=== PATIENT | male | born 1960 | race Caucasian/White ===

== ENCOUNTER 2016-07-07 08:56 | Emergency (ER) | payer OTHER ==
[~2016-07-07] VITALS: Ht 167.6 cm; Wt 73.0 kg
[~2016-07-07 08:56] MED LIST: PHEN-905 PO
[2016-07-07 09:10] VITALS: Ht 167.6 cm; Wt 73.0 kg
[2016-07-07] MEDS ORDERED: ACETAMINOPHEN 500 MG TAB PO STA (09:35)
--- NOTE | 2016-07-07 10:23 | DIAGNOSTIC IMAGING REPORT ---
CHEST 2 VIEWS ROUTINE CLINICAL HISTORY: fever, cough dyspnea COMPARISON STUDY: 06/10/2013 FINDINGS: The bones soft tissues and hemidiaphragms are normal. The cardiomediastinal silhouette is normal. The lungs are clear. The pulmonary vasculature is normal. IMPRESSION: Negative chest. Electronically signed by: David Red M.D. 07/07/2016 10:21 AM Dictated Date/Time: 07/07/2016 10:21 AM
[2016-07-07 10:46] LABS: BASO % 0.3 %; BASO ABS # 0.01 K/uL (0-0.2); COMPLETE YES; EOS % 1.3 %; HEMATOCRIT 47.5 % (42-52); IG% 0.3 %; LYMPH % 27.2 %; LYMPH ABS # 0.85 K/uL (1.2-3.4); MEAN CELL VOLUME 88.3 fL (80-100); MEAN CORPUSCULAR HEMOGLOBIN 31.2 pg (25-34); MEAN CORPUSCULAR HGB CONC 35.4 g/dl (32-36); MEAN PLATELET VOLUME 9.6 fL (7.4-10.4); MONO % 14.7 %; NEUT % 56.2 %; PLATELET COUNT 183 K/uL (130-400); RED BLOOD COUNT 5.38 M/uL (4.7-6.1); WHITE BLOOD COUNT 3.12 K/uL (4.8-10.8)
[2016-07-07 10:50] LABS: BUN/CREATININE RATIO 9.8 (10-20); CALCIUM 8.7 mg/dl (8.5-10.1); CREATININE 1.2 mg/dl (0.60-1.40); POTASSIUM 4.1 mmol/L (3.5-5.1)
[2016-07-07 11:07] LABS: URINE APPEARANCE TURBID (CLEAR); URINE COLOR DK YELLOW; URINE NITRITE NEG (NEG); URINE SPECIFIC GRAVITY 1.034 (1.000-1.030); UROBILINOGEN NEG (NEG); ZZUR CULT IF INDIC CLEAN CATCH NO
[2016-07-07 11:17] LABS: MANUAL MICROSCOPIC REQUIRED? NO; REVIEW REQ? NO; URINE BILIRUBIN NEG (NEG)
[2016-07-07] MEDS ORDERED: SODIUM CHLORIDE 0.9% 1000ML 1,000 ML IV STA (11:20)
[2016-07-07] MEDS ORDERED: OSEL75CA12 PO (11:34)
--- NOTE | 2016-07-07 11:35 | EMERGENCY ROOM VISIT NOTE ---
History First contact with patient: 09:29 Chief Complaint: FLU LIKE SX Stated Complaint: FLU SYMPTOMS, WEAKNESS, DEHYDRATION History of Present Illness The patient is a 56 year old male who presents to the Emergency Room with complaints of flulike symptoms. The patient states that Monday he started feeling achy all over. Over the last 2 days he felt fever and chills but has not taken it anything [id number]. The patient denies any nausea vomiting or diarrhea. The patient denies any urinary symptoms of frequency, urgency, dysuria or hematuria. The patient does admit to some nasal congestion but denies any cough, ear pain or sore throat. Review of Systems 10 system review was performed and was negative unless stated otherwise history of present illness. Past Medical/Surgical History Medical Problems: (1) Bronchitis (2) Lumbago (3) Nuclear cataract (4) Pneumonia Family History Patient reports no known family medical history. Social History Smoking Status: Former Smoker Alcohol Use: occasionally Drug Use: none Marital Status: Housing Status: lives with family Occupation Status: employed Allergies Coded Allergies: No Known Allergies (Unverified , 07/07/16) Physical Exam Vital Signs Date Time Temp Pulse Resp B/P Pulse Ox O2 Delivery O2 Flow Rate FiO2 07/07/16 09:10 37.7 107 20 129/90 95 Room Air Physical Exam PHYSICAL EXAM: Vital Signs normal: Temperature 37.7, blood pressure 120/90, pulse 107, respiratory rate 20 Reviewed Nurse's notes and agree. GENERAL: Patient is alert and oriented no acute distress. MENTAL Status: Alert and oriented 3. EARS: Canals clear. TMs good light reflex, no erythema or fluid level noted. NOSE: Nasal mucosa with erythema and engorgement. SINUSES: Nontender to percussion throughout. PHARYNX: No erythema or edema noted. Airway is adequate. LUNGS: Clear to auscultation without wheezes rales or rhonchi. CARDIAC: Regular rate and rhythm without murmur. BACK: No CVA tenderness noted. The abdomen is soft, mildly tender in the suprapubic area, but no masses or organs are felt. SKIN: No rashes noted Medical Decision & Procedures ER Provider Diagnostic Interpretation: CHEST 2 VIEWS ROUTINE CLINICAL HISTORY: fever, cough dyspnea COMPARISON STUDY: 06/10/2013 FINDINGS: The bones soft tissues and hemidiaphragms are normal. The cardiomediastinal silhouette is normal. The lungs are clear. The pulmonary vasculature is normal. IMPRESSION: Negative chest. Laboratory Results 07/07/16 09:57 Red Blood Count 5.38, Mean Corpuscular Volume 88.3, Mean Corpuscular Hemoglobin 31.2, Mean Corpuscular Hemoglobin Concent 35.4, Mean Platelet Volume 9.6, Neutrophils (%) (Auto) 56.2, Lymphocytes (%) (Auto) 27.2, Monocytes (%) (Auto) 14.7, Eosinophils (%) (Auto) 1.3, Basophils (%) (Auto) 0.3, Neutrophils # (Auto ) 1.75, Lymphocytes # (Auto) 0.85, Monocytes # (Auto) 0.46, Eosinophils # (Auto ) 0.04, Basophils # (Auto) 0.01 07/07/16 09:57 Test 07/07/16 09:30 07/07/16 09:57 07/07/16 10:48 Influenza Type A Antigen Neg for Influ A (NEG) Influenza Type B Antigen POS for Influ B (NEG) White Blood Count 3.12 K/uL (4.8-10.8) Red Blood Count 5.38 M/uL (4.7-6.1) Hemoglobin 16.8 g/dL (14.0-18.0) Hematocrit 47.5 % (42-52) Mean Corpuscular Volume 88.3 fL (80-100) Mean Corpuscular Hemoglobin 31.2 pg (25-34) Mean Corpuscular Hemoglobin Concent 35.4 g/dl (32-36) Platelet Count 183 K/uL (130-400) Mean Platelet Volume 9.6 fL (7.4-10.4) Neutrophils (%) (Auto) 56.2 % Lymphocytes (%) (Auto) 27.2 % Monocytes (%) (Auto) 14.7 % Eosinophils (%) (Auto) 1.3 % Basophils (%) (Auto) 0.3 % Neutrophils # (Auto) 1.75 K/uL (1.4-6.5) Lymphocytes # (Auto) 0.85 K/uL (1.2-3.4) Monocytes # (Auto) 0.46 K/uL (0.11-0.59) Eosinophils # (Auto) 0.04 K/uL (0-0.5) Basophils # (Auto) 0.01 K/uL (0-0.2) RDW Standard Deviation 41.8 fL (36.4-46.3) RDW Coefficient of Variation 13.0 % (11.5-14.5) Immature Granulocyte % (Auto) 0.3 % Immature Granulocyte # (Auto) 0.01 K/uL (0.00-0.02) Anion Gap 10.0 mmol/L (3-11) Est Creatinine Clear Calc Drug Dose 63.5 ml/min Estimated GFR () 79.0 Estimated GFR (Non- 68.1 BUN/Creatinine Ratio 9.8 (10-20) Calcium Level 8.7 mg/dl (8.5-10.1) Urine Color DK YELLOW Urine Appearance TURBID (CLEAR) Urine pH 5.0 (4.5-7.5) Urine Specific [place] 1.034 (1.000-1.030) Urine Protein TRACE (NEG) Urine Glucose (UA) TRACE (NEG) Urine Ketones TRACE (NEG) Urine Occult Blood NEG (NEG) Urine Nitrite NEG (NEG) Urine Bilirubin NEG (NEG) Urine Urobilinogen NEG (NEG) Urine Leukocyte Esterase NEG (NEG) Urine WBC (Auto) 1-5 /hpf (0-5) Urine RBC (Auto) 0-4 /hpf (0-4) Urine Hyaline Casts (Auto) 10-30 /lpf (0-5) Urine Epithelial Cells (Auto) 10-20 /lpf (0-5) Urine Bacteria (Auto) NEG (NEG) Medications Administered Medications (Trade) Dose Ordered Sig/Lacie Route Start Time Stop Time Status Last Admin Dose Admin Acetaminophen (Tylenol Tab) 1,000 mg NOW STAT PO 07/07/16 09:35 07/07/16 09:37 DC 07/07/16 10:02 1,000 MG ED Course The patient was evaluated. The patient was given Tylenol 1 g by mouth for fever. IV access was obtained. CBC and differential, renal profile was ordered. Labs are reviewed. White count was slightly low. Urinalysis was ordered. Urinalysis did not reveal any evidence of infection but his ketones were high therefore the patient was given 1 L normal saline wide-open. Chest x- ray was ordered and interpreted by the radiologist as above without any acute findings. Influenza was negative for influenza A but positive for influenza B. The patient was informed of the findings. The patient was discharged home in stable condition. Medical Decision Differential diagnosis include influenza, viral URI, bronchitis, pneumonia Impression Primary Impression: Influenza B Departure Information Dispostion Home / Self-Care Condition GOOD Prescriptions Oseltamivir (Tamiflu) 75 Mg Cap 75 MG PO BID for 5 Days, #10 CAP Prov: Edita Red PA-C 07/07/16 Referrals Lpóez Romero M.D. (PCP) Forms HOME CARE DOCUMENTATION FORM, IMPORTANT VISIT INFORMATION Patient Instructions My [facility] Additional Instructions Push fluids. Tylenol and/or ibuprofen as needed for fever and body aches. Take Tamiflu as directed. Avoid public places until symptoms have resolved. If symptoms persist or worsen, follow-up with your family doctor or return to ER.
[2016-07-07 12:34] VITALS: BP 116/81; PULSE 73; TEMP 37; O2SAT 98
== END 2016-07-07 12:36 | disposition home or self-care (01) ==
LOC: C.EDB 08:58
DX: J11.1 Influenza due to unidentified influenza virus with other respiratory manifestations (principal)

== ENCOUNTER 2023-04-29 09:18 | Inpatient (IN) ==
--- NOTE | 2023-04-29 09:46 | Emergency Department Note ---
Impression & Plan Abscess of sigmoid colon due to diverticulitis, Abdominal pain ED Provider Note NAME: SHERRY BARAKAT AGE: 62 SEX: M : 1960 ARRIVES VIA: Walk-In INFORMANT: Patient ED PROVIDER(S): Smith Gongora DO CHIEF COMPLAINT: abdominal pain HPI: Patient is a 62-year-old male who presents to the ER for lower abdominal pain. This started about 2 to 3 days ago. It waxes and wanes in intensity. And jumps from right side to left side intermittently. He denies any headache or change in vision. No chest pain or shortness of breath. No dysuria, urgency, or frequency. Normal bowel movements. No other exacerbating or remitting factors. No previous abdominal surgeries. ADDITIONAL HISTORY OBTAINED: Per HPI Chronic Medical/Social Conditions Affecting Care: Per HPI PAST MEDICAL HISTORY:See Below PAST SURGICAL HISTORY:See Below FAMILY HISTORY:See Below SOCIAL HISTORY:See Below HOME MEDICATIONS:See Below ALLERGIES:See Below VITALS:See Below PHYSICAL EXAMINATION: GENERAL: Sitting up in bed, alert, well appearing, well nourished, no distress, non-toxic EYE EXAM: normal conjunctiva. OROPHARYNX:mucous membranes are moist NECK: supple, no nuchal rigidity, no adenopathy, non-tender LUNGS: Clear to auscultation. Normal chest wall mechanics HEART: no murmurs, S1 normal and S2 normal ABDOMEN: abdomen soft, TTP lower abd B/L, normo-active bowel sounds, no masses, no rebound or guarding. UPPER EXTREMITIES: upper extremities are grossly normal. LOWER EXTREMITIES: No pitting edema. NEURO EXAM: Normal sensorium, cranial nerves II-XII grossly intact, normal speech, no gross weakness of arms, no gross weakness of legs. MEDICAL DECISION MAKING: Patient is a 62-year-old male who presents ER for severe abdominal pain. IV was established blood work was obtained. Labs show leukocytosis of 14,000. No significant anemia. BMP along with LFTs was unremarkable. T. bili of 2.2. Lipase was normal. UA with only 1-5 whites. Patient was given IV Zosyn as well as IV narcotics fluids and Zofran. Updated bedside. Discussed with general surgery and the hospitalist for further evaluation management and treatment. Consults/Care Managements Discussions: Per [facility] Triage Nursing notes reviewed. Limited review of prior medical records performed Vital Signs: reviewed and remarkable for no significant abnormalities Differential diagnosis: Differential diagnoses includes but is not limited to gastritis, peptic ulcer disease, GERD, gallbladder disease, pancreatitis, small bowel obstruction, appendicitis, diverticulitis, hernia, urinary tract infection, torsion, perforation, trauma, infectious. ER treatment provided: See below Diagnostics interpreted by me include EKG and cardiac monitoring as listed below: -Cardiac Monitoring: An order was placed for continuous cardiac monitoring. The monitor shows a rate of 101 with sinus rhythm. -ECG: none -Laboratory studies:Interpreted by me as stated above in MDM and shown below. Imaging studies: Xrays: As interpreted by me:none CTs show: CT abdomen pelvis per my preliminary read showed inflammation in the lower abdomen CT abdomen pelvis per radiology showed sigmoid diverticulitis with an abscess Procedures:none Critical Care: None Past Med/Surg History Medical History No pertinent past medical history Surgical History No pertinent past surgical history Social History Smoking Status: Never smoker Preferred Language: Afghan Feels Safe at Home: Yes Allergies Allergies Allergy/AdvReac Type Severity Reaction Status Date / Time No Known Allergies Allergy Unverified 04/29/23 12:39 Home Meds Home Medications Medication Instructions Recorded Confirmed ibuprofen 200 mg tablet (Advil) 200 mg PO Q6H PRN Pain 04/29/23 04/29/23 Results & Data (ED) Vital Signs Vital Signs - 24 hr 04/29/23 09:45 04/29/23 11:31 04/29/23 11:31 Temperature 36.2 C L Temperature Source Temporal Artery Scan Pulse Rate 141 H 105 H Pulse Rate [Apical] 105 H Pulse Rhythm Regular Regular Pulse Rhythm [Apical] Regular Pulse Strength Normal Pulse Strength [Apical] Normal Respiratory Rate 20 20 20 Respiratory Effort / Characteristics Non-Labored Spontaneous Non-Labored Spontaneous Respiratory Depth Normal Normal Respiratory Pattern Regular Regular Blood Pressure 122/88 Blood Pressure [Left Arm] 152/93 H Blood Pressure Mean 99 Blood Pressure Mean [Left Arm] 112 Blood Pressure Position Sitting Blood Pressure Position [Left Arm] Lying Pulse Oximetry 95 94 94 Oxygen Delivery Method Room Air Room Air Room Air Sepsis Recent Fever Within 48 Hours No Sepsis New/Unexplained Change in Mental Status No Sepsis Action Taken by Nursing No Action Required 04/29/23 11:57 Temperature Temperature Source Pulse Rate 106 H Pulse Rate [Apical] Pulse Rhythm Pulse Rhythm [Apical] Pulse Strength Pulse Strength [Apical] Respiratory Rate Respiratory Effort / Characteristics Respiratory Depth Respiratory Pattern Blood Pressure Blood Pressure [Left Arm] Blood Pressure Mean Blood Pressure Mean [Left Arm] Blood Pressure Position Blood Pressure Position [Left Arm] Pulse Oximetry Oxygen Delivery Method Sepsis Recent Fever Within 48 Hours Sepsis New/Unexplained Change in Mental Status Sepsis Action Taken by Nursing Laboratory Data 04/29/23 11:31 04/29/23 11:31 Lab Results 04/29/23 04/29/23 Range/Units 11:31 11:42 WBC 14.61 H (4.8-10.8) K/ul RBC 5.51 (4.70-6.10) M/uL Hgb 17.0 (14.0-18.0) g/dl POC Hgb 17.3 (14.0-18.0) g/dl Hct 49.2 (42.0-52.0) % POC Hct 51 (42-52) % MCV 89.3 (80.0-100.0) fL MCH 30.9 (25.0-34.0) pg MCHC 34.6 (32.0-36.0) g/dL RDW Std Deviation 41.3 (36.4-46.3) fL RDW Coeff of Adeola 12.6 (11.5-14.5) % Plt Count 316 (130-400) K/uL MPV 9.3 L (9.4-12.4) fL Immature Gran % (Auto) 0.8 % Neut % (Auto) 80.9 % Lymph % (Auto) 9.5 % Nolan % (Auto) 8.3 % Eos % (Auto) 0.2 % Baso % (Auto) 0.3 % Neut # (Auto) 11.82 H (1.40-6.50) K/uL Lymph # (Auto) 1.39 (1.20-3.40) K/uL Nolan # (Auto) 1.21 H (0.11-0.59) K/uL Eos # (Auto) 0.03 (0.00-0.50) K/uL Baso # (Auto) 0.05 (0.00-0.20) K/uL Immature Gran # (Auto) 0.11 (0.01-0.20) K/uL POC Sodium 138 (135-144) mmol/L Sodium 138 (136-145) mmol/L POC Potassium 4.2 (3.3-5.0) mmol/L Potassium 4.2 (3.5-5.1) mmol/L POC Chloride 101 (101-112) mmol/L Chloride 101 (98-107) mmol/L Carbon Dioxide 26 (21-32) mmol/L POC Total CO2 26 (24-31) mmol/L Anion Gap 11 (3-11) POC Anion Gap 16.0 (16-25) mmol/L POC BUN 16 (7-18) mg/dl BUN 16 (6-23) mg/dl Creatinine 1.14 (0.6-1.4) mg/dl POC Creatinine 1.2 (0.6-1.3) mg/dl Est Cr Clr Drug Dosing 67.2 ml/min Est GFR ( Amer) 80.6 ml/min Est GFR (Non-Af Amer) 69.5 ml/min BUN/Creatinine Ratio 14.0 (10-20) Glucose 95 (70-99(Fasting)) mg/dl POC Glucose (other) 98 (70-99) mg/dl Calcium 9.8 (8.6-10.3) mg/dl POC Ioniz Calcium Kathy 1.20 (1.12-1.32) mmol/l Total Bilirubin 2.2 H (0.2-1.0) mg/dl AST 31 (13-39) U/L ALT 37 (7-52) U/L Alkaline Phosphatase 100 (34-104) U/L Total Protein 8.4 H (6.0-8.3) gm/dl Albumin 4.4 (3.4-5.0) gm/dl Globulin 4.0 (2.5-4.0) gm/dl Albumin/Globulin Ratio 1.1 (0.9-2) Lipase 23 (11-82) U/L Urine Color [place] Urine Appearance Clear (Clear) Urine pH 5.5 (4.5-7.5) Ur Specific [place] 1.025 (1.000-1.030) Urine Protein 1+ H (Negative) Urine Glucose (UA) Negative (Negative) Urine Ketones 2+ H (Negative) Urine Blood Negative (Negative) Urine Nitrite Positive A (Negative) Urine Bilirubin 2+ H (Negative) Urine Urobilinogen Negative (Negative) Ur Leukocyte Esterase Trace H (Negative) Urine WBC (Auto) 1-5 (0-5) /hpf Urine RBC (Auto) 0-4 (0-4) /hpf U Hyaline Cast (Auto) 10-30 H (0-5) /lpf U Epithel Cells (Auto) 10-20 H (0-5) /lpf Urine Bacteria (Auto) Negative (Negative) Administered Medications Potassium Chloride/Sodium Chloride (Normal Saline W/20 Meq Kcl) 20 meq in 1,000 mls @ 100 mls/hr IV .Q10H ALEYDA; Protocol Stop: 05/29/23 12:59 Last Admin: 04/29/23 13:21 Dose: 100 mls/hr Documented By: JUAN RAMON Discontinued Medications Sodium Chloride (Nss) 1,000 mls @ 999 mls/hr IV .Q1H1M ALEYDA Stop: 04/29/23 13:45 Last Infusion: 04/29/23 13:47 Dose: Infused Documented By: JUAN RAMON Admin: 04/29/23 12:46 Dose: 999 mls/hr Documented By: Infusion: 04/29/23 12:46 Dose: Infused Documented By: Admin: 04/29/23 12:04 Dose: 999 mls/hr Documented By: NAT Piperacillin Sod/Tazobactam (Sod 4.5 gm/ Dextrose) 100 mls @ 200 mls/hr IV NOW ONE; Protocol Stop: 04/29/23 12:51 Last Admin: 04/29/23 12:46 Dose: Not Given Documented By: NAT Pantoprazole Sodium 40 mg/ (Syringe) 10 mls @ 5 mls/min IV ONE ONE Stop: 04/29/23 13:31 Last Admin: 04/29/23 13:41 Dose: 5 mls/min Documented By: JUAN RAMON Ioversol (Optiray 320 500ml) 91 ml IV ONCE ONE Stop: 04/29/23 11:52 Last Admin: 04/29/23 11:51 Dose: 91 ml Documented By: NHOEMI Morphine Sulfate (Morphine Sulfate 10 Mg/Ml Carp/Vial) 6 mg IV NOW STA Stop: 04/29/23 11:32 Last Admin: 04/29/23 12:05 Dose: 6 mg Documented By: NAT Ondansetron HCl (Ondansetron Inj 2 Mg/Ml 2 Ml Vial) 4 mg IV NOW STA Stop: 04/29/23 11:32 Last Admin: 04/29/23 12:05 Dose: 4 mg Documented By: NAT Piperacillin Sod/Tazobactam Sod (Piperacillin/Tazobactam 4.5 Gm/100ml D5w) Confirm Administered Dose 4.5 gm IV .[employer] ONE Stop: 04/29/23 12:36 Last Admin: 04/29/23 12:46 Dose: 4.5 gm Documented By: NAT Imaging Data Radiologist's Impression: Abdomen/Pelvis CT 04/29/23 09:[address] WITH IV CONTRAST CT DOSE: 1146.02 mGy.cm HISTORY: Acute lower abdominal pain lower abd pain TECHNIQUE: Multiaxial CT images of the abdomen and pelvis were performed following the IV administration of 91 cc of Optiray, A dose lowering technique was utilized adhering to the principles of ALARA. COMPARISON STUDY: Lumbar spine radiographs 05/17/2011 FINDINGS: Moderate coronary artery calcifications. Clear lung bases. No free air. Unremarkable spleen, pancreas, gallbladder and adrenal glands. Hepatic steatosis with 1.4 cm left hepatic lobe cyst. Patency of the hepatic and portal veins. Unremarkable kidneys without hydronephrosis. Decompressed urinary bladder with circumferential wall thickening. Prostatomegaly. Atherosclerosis of the aorta without aneurysm. No lymphadenopathy. Colonic diverticulosis. There is moderate mid sigmoid wall thickening with inflamed diverticula, adjacent inflammatory stranding with trace free pelvic fluid. There is a peripherally enhancing 2.0 x 2.1 cm air and fluid filled structure involving the sigmoid colon image 306 suggestive of an intramural abscess. No drainable fluid collections. Subcentimeter lymph nodes in the sigmoid mesocolon. Nondilated air and fluid-filled loops of small bowel within the lower abdomen and pelvis. The appendix is dilated at 8 mm however appears to be not inflamed. Subcentimeter calcification in the dependent cecum near the base of the appendix. Tiny fat filled umbilical area. Lumbar levoscoliosis. No acute fracture. IMPRESSION: 1. Acute sigmoid diverticulitis with probable intramural abscess measuring 2 cm. No drainable fluid collections or pneumoperitoneum. 2. No bowel obstruction. 3. Mildly dilated appendix without acute inflammatory changes to suggest acute appendicitis. 4. Small fat filled umbilical hernia. 5. Prostatomegaly with evidence of chronic outlet obstruction. ACT 112: Negative or not required by law. The above report was generated using voice recognition software. It may contain grammatical, syntax or spelling errors. Electronically signed by: Jersey Buck M.D. 04/29/2023 12:17 PM Discharge Plan Visit Data Chief Complaint: Abdominal Pain Stated Complaint: LOWER ABDOMINAL PAIN ED Provider: Smith Gongora Discharge Problem: Abscess of sigmoid colon due to diverticulitis, Abdominal pain Discharge Instructions Interventions: ED Discharge Assessment Last Done: 04/29/23 14:11 Discharge Problem: Abdominal pain Qualifiers: Abdominal location: unspecified location Qualified Code(s): R10.9 - Unspecified abdominal pain
[2023-04-29] MEDS ORDERED: ONDANSETRON INJ 2 MG/ML 2 ML VIAL IV STA (11:31)
[2023-04-29] MEDS ORDERED: MoRPHine SULFATE 10 MG/ML CARP/VIAL IV STA (11:31)
[2023-04-29] MEDS ORDERED: OPTIRAY 320 500ml IV ONE (11:51)
[2023-04-29 11:54] LABS: iSTAT Creatinine 1.2 mg/dl (0.6-1.3); iSTAT Hemoglobin 17.3 g/dl (14.0-18.0); iSTAT Ionized Calcium 1.2 mmol/l (1.12-1.32); iSTAT Potassium 4.2 mmol/L (3.3-5.0)
[2023-04-29 12:03] LABS: Basophils # (auto) 0.05 K/uL (0.00-0.20); Basophils % (auto) 0.3 %; Eosinophils # (auto) 0.03 K/uL (0.00-0.50); Eosinophils % (auto) 0.2 %; Hematocrit (blood only) 49.2 % (42.0-52.0); Immature Granulocytes # (auto) 0.11 K/uL (0.01-0.20); Immature Granulocytes % (auto) 0.8 %; Lymphocytes # (auto) 1.39 K/uL (1.20-3.40); Lymphocytes % (auto) 9.5 %; Mean Corpuscular Hemoglobin 30.9 pg (25.0-34.0); Mean Corpuscular Hgb Conc 34.6 g/dL (32.0-36.0); Mean Corpuscular Volume 89.3 fL (80.0-100.0); Mean Platelet Volume 9.3 fL (9.4-12.4); Monocytes # (auto) 1.21 K/uL (0.11-0.59); Monocytes % (auto) 8.3 %; Neutrophils # (auto) 11.82 K/uL (1.40-6.50); Neutrophils % (auto) 80.9 %; Platelet Count 316 K/uL (130-400); RDW Coefficient of Variation 12.6 % (11.5-14.5); RDW Standard Deviation 41.3 fL (36.4-46.3); Red Blood Count 5.51 M/uL (4.70-6.10); White Blood Count 14.61 K/ul (4.8-10.8)
[2023-04-29] MEDS: SODIUM CHLORIDE 0.9% 1,000 ML IV SCH ×2 (12:04→12:46)
[2023-04-29 12:13] LABS: Albumin Globulin Ratio 1.1 (0.9-2); Albumin Level 4.4 gm/dl (3.4-5.0); Bilirubin,Total 2.2 mg/dl (0.2-1.0); Calcium 9.8 mg/dl (8.6-10.3); Creatinine Clr Calc Pharmacy 67.2 ml/min; Est GFR (African American) 80.6 ml/min; Est GFR (Non-African American) 69.5 ml/min; Potassium 4.2 mmol/L (3.5-5.1); Total Protein 8.4 gm/dl (6.0-8.3)
--- NOTE | 2023-04-29 12:19 | CT Scan Report ---
ABDOMEN AND PELVIS CT WITH IV CONTRAST CT DOSE: 1146.02 mGy.cm HISTORY: Acute lower abdominal pain lower abd pain TECHNIQUE: Multiaxial CT images of the abdomen and pelvis were performed following the IV administrat ion of 91 cc of Optiray, A dose lowering technique was utilized adhering to the principles of ALARA. COMPARISON STUDY: Lumbar spine radiographs 05/17/2011 FINDINGS: Moderate coronary artery calcifications. Clear lung bases. No free air. Unremarkable spleen , pancreas, gallbladder and adrenal glands. Hepatic steatosis with 1.4 cm left hepatic lobe cyst. Pat ency of the hepatic and portal veins. Unremarkable kidneys without hydronephrosis. Decompressed urina ry bladder with circumferential wall thickening. Prostatomegaly. Atherosclerosis of the aorta without aneurysm. No lymphadenopathy. Colonic diverticulosis. There is moderate mid sigmoid wall thickening with inflamed diverticula, [place] cent inflammatory stranding with trace free pelvic fluid. There is a peripherally enhancing 2.0 x 2.1 cm air and fluid filled structure involving the sigmoid colon image 306 suggestive of an intramural abscess. No drainable fluid collections. Subcentimeter lymph nodes in the sigmoid mesocolon. Nondilat ed air and fluid-filled loops of small bowel within the lower abdomen and pelvis. The appendix is dil ated at 8 mm however appears to be not inflamed. Subcentimeter calcification in the dependent cecum n ear the base of the appendix. Tiny fat filled umbilical area. Lumbar levoscoliosis. No acute fracture . IMPRESSION: 1. Acute sigmoid diverticulitis with probable intramural abscess measuring 2 cm. No drainable fluid c ollections or pneumoperitoneum. 2. No bowel obstruction. 3. Mildly dilated appendix without acute inflammatory changes to suggest acute appendicitis. 4. Small fat filled umbilical hernia. 5. Prostatomegaly with evidence of chronic outlet obstruction. ACT 112: Negative or not required by law. The above report was generated using voice recognition software. It may contain grammatical, syntax o r spelling errors. Electronically signed by: Jersey Buck M.D. 04/29/2023 12:17 PM
[2023-04-29] MEDS ORDERED: PIPERACILLIN/TAZOBACTAM 4.5 GM in DEXTROSE 5% MINI-B 100 ML IV ONE (12:22)
[2023-04-29 12:30] LABS: Appearance Urine Clear (Clear); Bacteria Urine Automated Negative (Negative); Blood Urine Negative (Negative); Color Urine Orange; Glucose Urine UA Negative (Negative); Ketones Urine 2+ (Negative); Leukocyte Esterase Urine Trace (Negative); Nitrite Urine Positive (Negative); Protein Urine 1+ (Negative); RBC Urine Automated 0-4 /hpf (0-4); Specific Gravity Urine 1.025 (1.000-1.030); Urobilinogen Urine Negative (Negative); pH Urine 5.5 (4.5-7.5)
[2023-04-29] MEDS ORDERED: PIPERACILLIN/TAZOBACTAM 4.5 GM/100ML D5W IV ONE (12:35)
[2023-04-29 12:38] LABS: Bilirubin Urine 2+ (Negative)
--- NOTE | 2023-04-29 13:10 | History & Physical Report ---
Date of Service April 29, 2023 Assessment & Plan (1) Abscess of sigmoid colon due to diverticulitis: Plan Acute sigmoid diverticulitis with intramural abscess 2 cm- N.p.o. except ice chips Zosyn 4.5 g IV every 8 hours NSS + KCl 20 mill equivalents at 100 mL/h Zofran 4 mg IV every 6 hours as needed Pantoprazole 40 mg IV daily Acetaminophen 650 mg by mouth every 6 hours as needed for mild pain or fever Morphine sulfate 2 mg IV every 4 hours as needed for moderate to severe pain General surgery consult BPH with chronic bladder outlet obstruction- As noted on CT, however, patient has no symptomatology Follow urine output, straight cath as needed History of Present Illness Chief Complaint: The patient presents to the emergency department with complaint of 3 to 4 days of gradually worsening left lower quadrant pain, ultimately comes to the emergency department at the insistence of his . Primary Care Provider: NO PCP The patient is a 62-year-old male with no significant past medical history, who presents to the emergency department as noted above. CT scan of abdomen pelvis shows acute sigmoid diverticulitis with intramural abscess 2 cm in size, a mildly dilated appendix without signs of appendicitis, and BPH with chronic bladder outlet obstruction. From the ED the patient received normal saline 1 L bolus, Zosyn 4.5 g IV, morphine sulfate 6 mg IV, and Zofran 4 mg IV. He was assessed by general surgery Dr. Whitehead, and will be admitted to the hospitalist medical service Allergies Allergy/AdvReac Type Severity Reaction Status Date / Time No Known Allergies Allergy Unverified 04/29/23 12:39 Home Medications Medication Instructions Recorded Confirmed Type ibuprofen 200 mg tablet (Advil) 200 mg PO Q6H PRN Pain 04/29/23 04/29/23 History Past Med/Surg History Medical History No pertinent past medical history Surgical History No pertinent past surgical history Social History Smoking Status: Never smoker Preferred Language: Jamaican Feels Safe at Home: Yes Review of Systems Review of Systems: The patient denies chest pain, palpitations, shortness of breath, dyspnea on exertion, cough, lower extremity swelling, sore throat, fevers, chills, sweats, weight change, fatigue, nausea, vomiting, blood in urine or stool, dysuria, urinary frequency or urgency, lightheadedness, dizziness, headache, memory loss, loss of consciousness, rash, abnormal bruising or bleeding, imbalance, focal or generalized weakness, numbness or tingling in arms or legs, generalized arthralgias or myalgias, back or neck pain, or night sweats. The review of systems is otherwise negative other than for that already noted above, and at least 10 systems have been reviewed. Physical Exam Physical Exam: The patient is awake, alert and oriented 3, well developed and well nourished, normocephalic and atraumatic, lying in bed and in no acute distress. HEENT--PERRL, EOMI, mucous membranes and oropharynx dry. Neck--supple. No JVD. No bruits. Thyroid normal, trachea midline, no adenopathy. Heart--normal S1 and S2. No murmurs, rubs or gallops. Lungs--clear bilaterally, no respiratory distress, no accessory muscle use. Abdomen--normal bowel sounds and soft. Left lower quadrant tenderness. Nondistended, no hernias or masses, no organomegaly. Extremities--no cyanosis or clubbing. No edema. There are good distal pulses b/l. Dermatologic--normal skin turgor, normal color, no abnormal lymph nodes, no rash. Neurologic--cranial nerves II through XII grossly intact. Rheumatologic--normal range of motion. Psychiatric--normal affect. Results & Data Results & Data Vital Signs (Past 12 Hours) Vital Signs Temp Pulse Pulse Resp BP BP Pulse Ox 04/29/23 11:57 106 H 04/29/23 11:31 105 H 20 94 04/29/23 11:31 105 H 20 152/93 H 94 04/29/23 09:45 36.2 C L 141 H 20 122/88 95 O2 Del Method 04/29/23 11:57 04/29/23 11:31 Room Air 04/29/23 11:31 Room Air 04/29/23 09:45 Room Air Laboratory Results Laboratory Results WBC 14.61 K/ul (4.8-10.8) H 04/29/23 11:31 RBC 5.51 M/uL (4.70-6.10) 04/29/23 11:31 Hgb 17.0 g/dl (14.0-18.0) 04/29/23 11:31 POC Hgb 17.3 g/dl (14.0-18.0) 04/29/23 11:42 Hct 49.2 % (42.0-52.0) 04/29/23 11:31 POC Hct 51 % (42-52) 04/29/23 11:42 MCV 89.3 fL (80.0-100.0) 04/29/23 11:31 MCH 30.9 pg (25.0-34.0) 04/29/23 11:31 MCHC 34.6 g/dL (32.0-36.0) 04/29/23 11:31 RDW Std Deviation 41.3 fL (36.4-46.3) 04/29/23 11:31 RDW Coeff of Adeola 12.6 % (11.5-14.5) 04/29/23 11:31 Plt Count 316 K/uL (130-400) 04/29/23 11:31 MPV 9.3 fL (9.4-12.4) L 04/29/23 11:31 Immature Gran % (Auto) 0.8 % 04/29/23 11:31 Neut % (Auto) 80.9 % 04/29/23 11:31 Lymph % (Auto) 9.5 % 04/29/23 11:31 [place] % (Auto) 8.3 % 04/29/23 11:31 Eos % (Auto) 0.2 % 04/29/23 11:31 Baso % (Auto) 0.3 % 04/29/23 11:31 Neut # (Auto) 11.82 K/uL (1.40-6.50) H 04/29/23 11:31 Lymph # (Auto) 1.39 K/uL (1.20-3.40) 04/29/23 11:31 [place] # (Auto) 1.21 K/uL (0.11-0.59) H 04/29/23 11:31 Eos # (Auto) 0.03 K/uL (0.00-0.50) 04/29/23 11:31 Baso # (Auto) 0.05 K/uL (0.00-0.20) 04/29/23 11:31 Immature Gran # (Auto) 0.11 K/uL (0.01-0.20) 04/29/23 11:31 POC Sodium 138 mmol/L (135-144) 04/29/23 11:42 Sodium 138 mmol/L (136-145) 04/29/23 11:31 POC Potassium 4.2 mmol/L (3.3-5.0) 04/29/23 11:42 Potassium 4.2 mmol/L (3.5-5.1) 04/29/23 11:31 POC Chloride 101 mmol/L (101-112) 04/29/23 11:42 Chloride 101 mmol/L (98-107) 04/29/23 11:31 Carbon Dioxide 26 mmol/L (21-32) 04/29/23 11:31 POC Total CO2 26 mmol/L (24-31) 04/29/23 11:42 Anion Gap 11 (3-11) 04/29/23 11:31 POC Anion Gap 16.0 mmol/L (16-25) 04/29/23 11:42 POC BUN 16 mg/dl (7-18) 04/29/23 11:42 BUN 16 mg/dl (6-23) 04/29/23 11:31 Creatinine 1.14 mg/dl (0.6-1.4) 04/29/23 11:31 POC Creatinine 1.2 mg/dl (0.6-1.3) 04/29/23 11:42 Est Cr Clr Drug Dosing 67.2 ml/min 04/29/23 11:31 Est GFR ( Amer) 80.6 ml/min 04/29/23 11:31 Est GFR (Non-Af Amer) 69.5 ml/min 04/29/23 11:31 BUN/Creatinine Ratio 14.0 (10-20) 04/29/23 11:31 Glucose 95 mg/dl (70-99(Fasting)) 04/29/23 11:31 POC Glucose (other) 98 mg/dl (70-99) 04/29/23 11:42 Calcium 9.8 mg/dl (8.6-10.3) 04/29/23 11:31 POC Ioniz Calcium Kathy 1.20 mmol/l (1.12-1.32) 04/29/23 11:42 Total Bilirubin 2.2 mg/dl (0.2-1.0) H 04/29/23 11:31 AST 31 U/L (13-39) 04/29/23 11:31 ALT 37 U/L (7-52) 04/29/23 11:31 Alkaline Phosphatase 100 U/L (34-104) 04/29/23 11:31 Total Protein 8.4 gm/dl (6.0-8.3) H 04/29/23 11:31 Albumin 4.4 gm/dl (3.4-5.0) 04/29/23 11:31 Globulin 4.0 gm/dl (2.5-4.0) 04/29/23 11:31 Albumin/Globulin Ratio 1.1 (0.9-2) 04/29/23 11:31 Lipase 23 U/L (11-82) 04/29/23 11:31 Urine Color [place] 04/29/23 11:31 Urine Appearance Clear (Clear) 04/29/23 11:31 Urine pH 5.5 (4.5-7.5) 04/29/23 11:31 Ur Specific [place] 1.025 (1.000-1.030) 04/29/23 11:31 Urine Protein 1+ (Negative) H 04/29/23 11:31 Urine Glucose (UA) Negative (Negative) 04/29/23 11:31 Urine Ketones 2+ (Negative) H 04/29/23 11:31 Urine Blood Negative (Negative) 04/29/23 11:31 Urine Nitrite Positive (Negative) A 04/29/23 11:31 Urine Bilirubin 2+ (Negative) H 04/29/23 11:31 Urine Urobilinogen Negative (Negative) 04/29/23 11:31 Ur Leukocyte Esterase Trace (Negative) H 04/29/23 11:31 Urine WBC (Auto) 1-5 /hpf (0-5) 04/29/23 11:31 Urine RBC (Auto) 0-4 /hpf (0-4) 04/29/23 11:31 U Hyaline Cast (Auto) 10-30 /lpf (0-5) H 04/29/23 11:31 U Epithel Cells (Auto) 10-20 /lpf (0-5) H 04/29/23 11:31 Urine Bacteria (Auto) Negative (Negative) 04/29/23 11:31 Impressions Abdomen/Pelvis CT 04/29/23 09:[address] WITH IV CONTRAST CT DOSE: 1146.02 mGy.cm HISTORY: Acute lower abdominal pain lower abd pain TECHNIQUE: Multiaxial CT images of the abdomen and pelvis were performed following the IV administration of 91 cc of Optiray, A dose lowering technique was utilized adhering to the principles of ALARA. COMPARISON STUDY: Lumbar spine radiographs 05/17/2011 FINDINGS: Moderate coronary artery calcifications. Clear lung bases. No free air. Unremarkable spleen, pancreas, gallbladder and adrenal glands. Hepatic steatosis with 1.4 cm left hepatic lobe cyst. Patency of the hepatic and portal veins. Unremarkable kidneys without hydronephrosis. Decompressed urinary bladder with circumferential wall thickening. Prostatomegaly. Atherosclerosis of the aorta without aneurysm. No lymphadenopathy. Colonic diverticulosis. There is moderate mid sigmoid wall thickening with inflamed diverticula, adjacent inflammatory stranding with trace free pelvic fluid. There is a peripherally enhancing 2.0 x 2.1 cm air and fluid filled structure involving the sigmoid colon image 306 suggestive of an intramural abscess. No drainable fluid collections. Subcentimeter lymph nodes in the sigmoid mesocolon. Nondilated air and fluid-filled loops of small bowel within the lower abdomen and pelvis. The appendix is dilated at 8 mm however appears to be not inflamed. Subcentimeter calcification in the dependent cecum near the base of the appendix. Tiny fat filled umbilical area. Lumbar levoscoliosis. No acute fracture. IMPRESSION: 1. Acute sigmoid diverticulitis with probable intramural abscess measuring 2 cm. No drainable fluid collections or pneumoperitoneum. 2. No bowel obstruction. 3. Mildly dilated appendix without acute inflammatory changes to suggest acute appendicitis. 4. Small fat filled umbilical hernia. 5. Prostatomegaly with evidence of chronic outlet obstruction. ACT 112: Negative or not required by law. The above report was generated using voice recognition software. It may contain grammatical, syntax or spelling errors. Electronically signed by: Jersey Buck M.D. 04/29/2023 12:17 PM Code Status & VTE Plan Code Status Full code VTE Prophylaxis Plan VTE Prophylaxis will be ordered: Yes PG Care Time/CCT Total # of Minutes Spent Total Time Spent with Patient: Total time spent is greater than 50% in coordination of care (as documented) at patient's floor/unit and/or counseling patient: Coding Level of Care Code 89612 INT INP/OBS CARE Diagnoses Abscess of sigmoid colon due to diverticulitis K57.20
[2023-04-29] MEDS: NSS + 20MEQ KCL 20 MEQ/1,000 ML BAG IV SCH (13:21)
[2023-04-29] MEDS ORDERED: PANTOprazole 40 MG in SYRINGE 0 ML IV ONE (13:30)
[2023-04-29] MEDS ORDERED: ONDANSETRON INJ 2 MG/ML 2 ML VIAL IV PRN (14:10)
[2023-04-29] MEDS ORDERED: ACETAMINOPHEN 325 MG TAB PO PRN (14:10)
[2023-04-29] MEDS: MoRPHine SULFATE 2 MG/ML CARP IV PRN (17:29)
[2023-04-29] MEDS: PIPERACILLIN/TAZOBACTAM 4.5 GM in DEXTROSE 5% MINI-B 100 ML IV SCH (17:30)
--- NOTE | 2023-04-29 19:56 | Surgery Consultation ---
Date of Consultation April 29, 2023 Assessment & Plan (1) Abscess of sigmoid colon due to diverticulitis: The patient has been admitted on the hospitalist service. From a surgical perspective we recommend proceeding as follows: Provide analgesics Provide antiemetics N.p.o. status has been implemented and this should be continued. (I think would be acceptable for patient to have an occasional ice chips for comfort) Provide IV fluid for hydration until oral intake can be advanced and is deemed adequate Maintain the patient on antibioticshe has been initiated on Zosyn. Patient will likely require at least a 10 to 14-day course of antibiotics with plans to transition to oral antibiotics at time of discharge Follow serial labs I discussed with the patient the above treatment plan. I discussed with him that it would be preferable to avoid surgical intervention as this would likely necessitate a colostomy which she would like to avoid. I also discussed with the patient would be preferable for him to have an up-to-date colonoscopy prior to entertaining any surgical intervention should this be needed. Will follow serial physical exams and serial labs as noted above. If patient fails to show any improvement over the next 2 to 3 days consideration be given to obtaining a CT scan but this may not be needed if the patient clinically improves. Additional recommendations be forthcoming based on his clinical course as unfolds as above. no urgent indication for surgical intervention. will follow along History of Present Illness Reason for Consultation: Diverticulitis Attending Physician: Andreas Smith MD History of Present Illness This is a 62-year-old male who presented the emergency department secondary to 2 to 3 days of abdominal pain. The patient notes that the pain is primary located in a bandlike fashion in his lower abdomen without radiation or modifying factors. He denies any nausea or vomiting. He denies any fevers, shakes, or chills. He notes that he tried [id number] Advil with little relief of his pain and since persisted over the past 2 to 3 days he presented to the emergency department for medical attention. Of note, the patient did not see any of his outpatient physicians for treatment of this condition. He denies any prior abdominal surgeries. He has no prior history of diverticulitis. He also notes that he has had a colonoscopy in the past but has been approximately 10 yearsto the best of his knowledge there were no concerning pathologic findings on this study. Since arrival to the hospital the patient has had labs and imaging which I independent reviewed. He had a CT scan of the abdomen pelvis that showed patient had acute sigmoid diverticulitis with concern for an intramural abscess measuring approximate 2 cm. There is no drainable fluid collections. There is no evidence of pneumoperitoneum. The patient was also noted to have a small fat filled umbilical hernia. Labs include a CBC her white blood cell count was elevated at 14.6. Hemoglobin and hematocrit along with the platelet count were normal. Chemistry profile showed sodium and potassium as well as the BUN and creatinine were normal. Urinalysis was positive for nitrites and showed trace leukocyte Estrace. There is no pyuria on this study. There is no bacteria on the study. At the time of my interview the patient was resting comfortably in bed and he was in no distress. 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 Required: No Beliefs That Will Affect Care: None Current Living Situation: Significant Other Feels Safe at Home: Yes Assistive Devices: Glasses Review of Systems Constitutional: no fever and no chills Ear, Nose, Mouth, Throat: no ear pain Respiratory: no cough and no dyspnea Cardiovascular: no chest pain Gastrointestinal: as per Subjective / HPI Genitourinary: no dysuria Musculoskeletal: no back pain Integumentary: no rash Neurologic: no localized weakness Physical Exam Constitutional: WD/WN, vitals as above Patient is nontoxic-appearing Eyes: no conjunctival abnormality ENMT: Ears: no hearing impairment and no external ear abnormality Mouth: no oropharynx abnormality Neck: trachea midline Respiratory: normal respiratory effort; no respiratory distress and no labored breathing Cardiovascular: Rate/Rhythm: regular rate and regular rhythm Gastrointestinal (Abdomen): Abdomen is soft and minimally distended. Bowel sounds are present. Patient does have some pain with palpation in the lower abdomen. There is no rebound tenderness or guarding at the time of my exam. Patient was noted to have a ventral hernia just superior to the umbilicus. Musculoskeletal: No calf tenderness Skin: no rashes Neurologic: moves all extremities Psychiatric: A+Ox3, euthymic affect Results & Data Vital Signs (Past 12 Hours) Vital Signs Temp Pulse Pulse Pulse Resp BP BP 04/29/23 18:29 36.5 C 97 H 16 131/78 04/29/23 17:45 04/29/23 17:40 97 H 19 04/29/23 17:30 137/87 04/29/23 17:30 100 H 21 04/29/23 17:20 100 H 18 04/29/23 17:10 98 H 20 04/29/23 17:00 98 H 23 04/29/23 17:00 137/80 04/29/23 16:50 98 H 22 04/29/23 16:40 96 H 20 04/29/23 16:31 97 H 22 04/29/23 16:31 129/83 04/29/23 16:30 99 H 20 04/29/23 16:20 100 H 18 04/29/23 16:10 97 H 17 04/29/23 16:08 97 H 14 04/29/23 16:08 119/81 04/29/23 16:00 97 H 17 04/29/23 16:00 128/79 04/29/23 16:00 97 H 18 130/81 04/29/23 15:50 98 H 19 04/29/23 15:40 98 H 17 04/29/23 15:30 97 H 18 04/29/23 15:30 130/82 04/29/23 15:20 111 H 28 H 04/29/23 15:10 97 H 21 04/29/23 15:00 130/81 04/29/23 15:00 101 H 21 04/29/23 14:50 99 H 24 04/29/23 14:40 105 H 21 04/29/23 14:30 100 H 23 04/29/23 14:30 130/85 04/29/23 14:20 98 H 23 04/29/23 14:10 100 H 23 12/30/23 14:00 98 H 17 04/29/23 14:00 134/86 04/29/23 13:50 99 H 17 04/29/23 13:40 105 H 20 04/29/23 13:30 123 H 15 04/29/23 13:30 134/86 04/29/23 13:20 123 H 21 04/29/23 13:13 119/86 04/29/23 13:13 102 H 21 04/29/23 13:13 105 H 20 119/86 04/29/23 13:10 107 H 19 04/29/23 13:00 137/92 04/29/23 13:00 109 H 17 04/29/23 12:50 105 H 24 04/29/23 12:40 107 H 24 04/29/23 12:30 109 H 24 04/29/23 12:30 138/86 04/29/23 12:20 106 H 20 04/29/23 12:10 107 H 19 04/29/23 11:57 106 H 04/29/23 11:31 105 H 20 04/29/23 11:31 105 H 20 152/93 H 04/29/23 09:45 36.2 C L 141 H 20 122/88 Pulse Ox O2 Del Method 04/29/23 18:29 94 Room Air 04/29/23 17:45 94 Room Air 04/29/23 17:40 94 Room Air 04/29/23 17:30 04/29/23 17:30 94 04/29/23 17:20 94 04/29/23 17:10 93 04/29/23 17:00 93 04/29/23 17:00 04/29/23 16:50 92 04/29/23 16:40 93 04/29/23 16:31 94 04/29/23 16:31 04/29/23 16:30 96 04/29/23 16:20 94 04/29/23 16:10 94 04/29/23 16:08 94 04/29/23 16:08 04/29/23 16:00 94 04/29/23 16:00 04/29/23 16:00 95 Room Air 04/29/23 15:50 93 04/29/23 15:40 94 04/29/23 15:30 94 04/29/23 15:30 04/29/23 15:20 93 04/29/23 15:10 93 04/29/23 15:00 04/29/23 15:00 94 04/29/23 14:50 92 04/29/23 14:40 91 04/29/23 14:30 93 04/29/23 14:30 04/29/23 14:20 92 04/29/23 14:10 93 04/29/23 14:00 95 04/29/23 14:00 04/29/23 13:50 96 04/29/23 13:40 96 04/29/23 13:30 97 04/29/23 13:30 04/29/23 13:20 94 04/29/23 13:13 04/29/23 13:13 94 04/29/23 13:13 95 Room Air 04/29/23 13:10 95 04/29/23 13:00 04/29/23 13:00 96 04/29/23 12:50 93 04/29/23 12:40 93 04/29/23 12:30 92 04/29/23 12:30 04/29/23 12:20 92 04/29/23 12:10 95 04/29/23 11:57 04/29/23 11:31 94 Room Air 04/29/23 11:31 94 Room Air 04/29/23 09:45 95 Room Air PG Care Time/CCT Total # of Minutes Spent Total Time Spent with Patient: Total time spent is greater than 50% in coordination of care (as documented) at patient's floor/unit and/or counseling patient: Coding Level of Care Code 23829 IN/OBS CONSULT LVL 5,80M Diagnoses Abscess of sigmoid colon due to diverticulitis K57.20
[2023-04-30] MEDS: NSS + 20MEQ KCL 20 MEQ/1,000 ML BAG IV SCH ×3 (00:15→19:35)
[2023-04-30] MEDS: PIPERACILLIN/TAZOBACTAM 4.5 GM in DEXTROSE 5% MINI-B 100 ML IV SCH ×3 (00:16→17:03)
[2023-04-30] MEDS: MoRPHine SULFATE 2 MG/ML CARP IV PRN (00:17)
--- NOTE | 2023-04-30 06:07 | Surgery Progress Note ---
Date of Service April 30, 2023 Assessment & Plan (1) Abscess of sigmoid colon due to diverticulitis: Plan: The patient has been admitted on the hospitalist service. Continue surgical care as follows: Continue analgesics Continue antiemetics as needed Continue n.p.o. status until further clinical improvement is noted and patient has return of bowel function Provide IV fluid for hydration until oral intake can be advanced and is deemed adequate Maintain patient on antibiotics in the form of Zosyn which have been initiated Check a.m. labs when available Ambulate as able as above. showing improvement. will let him have clears today. WBC normalized Admission and Anticipated Discharge Date Admission Date: April 29, 2023 Subjective Patient is currently resting comfortably bed. He continues to note some abdominal pain in the lower abdomen but it is no worse than time of admission. He denies any nausea or vomiting. He denies any fevers, shakes, or chills. He has yet to pass a BM or flatus since admission. Physical Exam Gastrointestinal (Abdomen): Abdomen is minimally distended but overall soft and nonrigid. There is pain with palpation of the lower abdomen, similar to yesterday's exam. Bowel sounds are hypoactive. Results & Data Vital Signs (Past 12 Hours) Vital Signs Temp Pulse Resp BP Pulse Ox O2 Del Method 04/30/23 00:23 36.9 C 85 16 125/82 95 Room Air 04/29/23 18:29 36.5 C 97 H 16 131/78 94 Room Air PG Care Time/CCT Total # of Minutes Spent Total Time Spent with Patient: Total time spent is greater than 50% in coordination of care (as documented) at patient's floor/unit and/or counseling patient: Coding Level of Care Code 12786 SUB INP/OBS CARE 2/35MIN Diagnoses Abscess of sigmoid colon due to diverticulitis K57.20
[2023-04-30 08:05] LABS: Basophils # (auto) 0.04 K/uL (0.00-0.20); Basophils % (auto) 0.5 %; Eosinophils # (auto) 0.16 K/uL (0.00-0.50); Hematocrit (blood only) 39.3 % (42.0-52.0); Hemoglobin 13.4 g/dl (14.0-18.0); Immature Granulocytes # (auto) 0.03 K/uL (0.01-0.20); Immature Granulocytes % (auto) 0.4 %; Lymphocytes # (auto) 1.04 K/uL (1.20-3.40); Lymphocytes % (auto) 13.1 %; Mean Corpuscular Hemoglobin 30.7 pg (25.0-34.0); Mean Corpuscular Hgb Conc 34.1 g/dL (32.0-36.0); Mean Corpuscular Volume 90.1 fL (80.0-100.0); Mean Platelet Volume 9.2 fL (9.4-12.4); Monocytes # (auto) 0.74 K/uL (0.11-0.59); Monocytes % (auto) 9.3 %; Neutrophils # (auto) 5.95 K/uL (1.40-6.50); Neutrophils % (auto) 74.7 %; Platelet Count 211 K/uL (130-400); RDW Coefficient of Variation 12.3 % (11.5-14.5); RDW Standard Deviation 40.8 fL (36.4-46.3); Red Blood Count 4.36 M/uL (4.70-6.10); White Blood Count 7.96 K/ul (4.8-10.8)
--- NOTE | 2023-04-30 08:15 | Hospitalist Progress Note ---
Date of Service April 30, 2023 Assessment & Plan (1) Abscess of sigmoid colon due to diverticulitis: Plan: Pain is generally controlled. Patient is tolerating a clear liquid diet Advance diet per surgery No immediate plans for surgical intervention Continue with Zosyn IV antibiotic coverage (2) Abdominal pain: Plan: Pain is currently controlled Patient has IV morphine and Tylenol ordered Will add Oxy IR 5 mg every 6 hours as needed for pain 0-5 and continue with the IV morphine for pain 6-10 Continue Tylenol as needed (3) Nicotine dependence, chewing tobacco, uncomplicated: Plan: No history of cigarette smoking. Patient does chew tobacco Discussed that tobacco use can irritate digestive tract Patient advised to not use nicotine while inpatient. Nicotine patch offered and deferred Discussed risk of head and neck cancer as well as digestive tract complications from tobacco juice Patient encouraged to work on complete abstention from all tobacco products Plan Patient currently tolerating clear liquids. Advance diet per surgical team No current indication for surgical intervention Anticipate discharge home with no significant discharge needs Admission and Anticipated Discharge Date Admission Date: April 29, 2023 Subjective Attending: Dr. Valero This is a 62-year-old male that was admitted yesterday for abscess of sigmoid colon due to diverticulitis. Patient was started on saline solution as well as Zosyn. Pain is being managed with morphine and patient was given Zofran IV for nausea. Surgery was consulted and at this time continues to monitor. Patient has yet to pass bowel movement or any flatus since admission. Patient is afebrile with a Tmax of 36.9 C. He is currently hemodynamically stable and is saturating at 94% on room air. No significant leukocytosis or anemia. Electrolytes are balanced at this time. Patient is on no significant home medications other than as needed Advil. No history of other significant past medical history. Patient seen at bedside with significant other and daughter present. Nausea controlled. Some persistent pain lower abdomen. Now passing flatus. Still no bowel movement. No vomiting. Denies fever, chills, sweats, rigors. Does occasionally get warm but this resolves with covers. No diaphoresis. No other acute complaints at this time Review of Systems 2 Review of Systems: A total of 10 systems was reviewed and is negative other than as listed in the HPI Physical Exam 2 Physical Exam: GENERAL : No acute distress EYES: No icterus, gaze conjugate NOSE: No evidence of epistaxis MOUTH: No lesions or candidiasis NECK: Supple LUNGS: CTA B/L, no wheezes, rales or rhonchi HEART: Regular, rate controlled ABDOMEN: Soft, NT, ND, BS Present. Positive for rebound tenderness as well as tenderness with deep palpation in the right and left lower quadrants EXTREMITIES: No LE edema, pedal pulses intact NEURO: A&OX3 Results & Data Results & Data Vital Signs (Past 12 Hours) Vital Signs Temp Pulse Resp BP Pulse Ox O2 Del Method 04/30/23 07:26 36.5 C 79 16 127/82 94 Room Air 04/30/23 00:23 36.9 C 85 16 125/82 95 Room Air Laboratory Results Abnormal lab results 04/29/23 04/30/23 Range/Units 11: 07:40 WBC 14.61 H (4.8-10.8) K/ul RBC 4.36 L (4.70-6.10) M/uL Hgb 13.4 L D (14.0-18.0) g/dl Hct 39.3 L (42.0-52.0) % MPV 9.3 L 9.2 L (9.4-12.4) fL Neut # (Auto) 11.82 H (1.40-6.50) K/uL Lymph # (Auto) 1.04 L (1.20-3.40) K/uL [place] # (Auto) 1.21 H 0.74 H (0.11-0.59) K/uL Total Bilirubin 2.2 H (0.2-1.0) mg/dl Total Protein 8.4 H (6.0-8.3) gm/dl Urine Protein 1+ H (Negative) Urine Ketones 2+ H (Negative) Urine Nitrite Positive A (Negative) Urine Bilirubin 2+ H (Negative) Ur Leukocyte Esterase Trace H (Negative) U Hyaline Cast (Auto) 10-30 H (0-5) /lpf U Epithel Cells (Auto) 10-20 H (0-5) /lpf 04/30/23 07:40 Diagnostic Findings Abdomen/Pelvis CT 04/29/23 09:[address] WITH IV CONTRAST CT DOSE: 1146.02 mGy.cm HISTORY: Acute lower abdominal pain lower abd pain TECHNIQUE: Multiaxial CT images of the abdomen and pelvis were performed following the IV administration of 91 cc of Optiray, A dose lowering technique was utilized adhering to the principles of ALARA. COMPARISON STUDY: Lumbar spine radiographs 05/17/2011 FINDINGS: Moderate coronary artery calcifications. Clear lung bases. No free air. Unremarkable spleen, pancreas, gallbladder and adrenal glands. Hepatic steatosis with 1.4 cm left hepatic lobe cyst. Patency of the hepatic and portal veins. Unremarkable kidneys without hydronephrosis. Decompressed urinary bladder with circumferential wall thickening. Prostatomegaly. Atherosclerosis of the aorta without aneurysm. No lymphadenopathy. Colonic diverticulosis. There is moderate mid sigmoid wall thickening with inflamed diverticula, adjacent inflammatory stranding with trace free pelvic fluid. There is a peripherally enhancing 2.0 x 2.1 cm air and fluid filled structure involving the sigmoid colon image 306 suggestive of an intramural abscess. No drainable fluid collections. Subcentimeter lymph nodes in the sigmoid mesocolon. Nondilated air and fluid-filled loops of small bowel within the lower abdomen and pelvis. The appendix is dilated at 8 mm however appears to be not inflamed. Subcentimeter calcification in the dependent cecum near the base of the appendix. Tiny fat filled umbilical area. Lumbar levoscoliosis. No acute fracture. IMPRESSION: 1. Acute sigmoid diverticulitis with probable intramural abscess measuring 2 cm. No drainable fluid collections or pneumoperitoneum. 2. No bowel obstruction. 3. Mildly dilated appendix without acute inflammatory changes to suggest acute appendicitis. 4. Small fat filled umbilical hernia. 5. Prostatomegaly with evidence of chronic outlet obstruction. ACT 112: Negative or not required by law. The above report was generated using voice recognition software. It may contain grammatical, syntax or spelling errors. Electronically signed by: Jersey Buck M.D. 04/29/2023 12:17 PM Medications Administered Current Medications Acetaminophen (Acetaminophen 325 Mg Tab) 650 mg PO Q4H PRN PRN Reason: pain/fever Stop: 05/29/23 14:09 Potassium Chloride/Sodium Chloride (Normal Saline W/20 Meq Kcl) 20 meq in 1,000 mls @ 100 mls/hr IV .Q10H [facility]; Protocol Stop: 05/29/23 12:59 Last Admin: 04/30/23 00:15 Dose: 100 mls/hr Pantoprazole Sodium 40 mg/ (Syringe) 10 mls @ 5 mls/min IV DAILY@1100 ALEYDA Stop: 05/30/23 10:59 Piperacillin Sod/Tazobactam (Sod 4.5 gm/ Dextrose) 100 mls @ 25 mls/hr IV Q8H ALEYDA; Protocol Stop: 05/09/23 16:59 Last Infusion: 04/30/23 04:21 Dose: Infused Morphine Sulfate (Morphine Sulfate 2 Mg/Ml Carp) 2 mg IV Q4H PRN PRN Reason: Pain Stop: 05/13/23 14:09 Last Admin: 04/30/23 00:17 Dose: 2 mg Ondansetron HCl (Ondansetron Inj 2 Mg/Ml 2 Ml Vial) 4 mg IV Q6H PRN PRN Reason: Nausea Stop: 05/29/23 14:09 PG Care Time/CCT Total # of Minutes Spent Total Time Spent with Patient: Total time spent is greater than 50% in coordination of care (as documented) at patient's floor/unit and/or counseling patient: Coding Level of Care Code 44494 SUB INP/OBS CARE 05/25MIN Diagnoses Abscess of sigmoid colon due to diverticulitis K57.20 Abdominal pain R10.9 Abdominal location: unspecified location Nicotine dependence, chewing tobacco, uncomplicated F17.220 Time Spent (min) 30 (2) Abdominal pain Abdominal location: unspecified location Qualified Code(s): R10.9 - Unspecified abdominal pain
[2023-04-30 08:28] LABS: Albumin Globulin Ratio 1.1 (0.9-2); Albumin Level 3.3 gm/dl (3.4-5.0); BUN Creatinine Ratio 13.7 (10-20); Bilirubin,Total 2.3 mg/dl (0.2-1.0); Calcium 8.2 mg/dl (8.6-10.3); Creatinine Clr Calc Pharmacy 80.6 ml/min; Est GFR (African American) 100.4 ml/min; Est GFR (Non-African American) 86.7 ml/min; Total Protein 6.3 gm/dl (6.0-8.3)
--- NOTE | 2023-04-30 09:12 | Electrocardiogram Report ---
Test Reason : Blood Pressure : / mmHG Vent. Rate : 103 BPM Atrial Rate : 103 BPM P-R Int : 140 ms QRS Dur : 080 ms QT Int : 328 ms P-R-T Axes : 027 031 042 degrees QTc Int : 429 ms Sinus tachycardia Otherwise normal ECG When compared with ECG of 17-FEB-2010 18:46, No significant change was found Confirmed by Eduardo Freitas ([id number]) on 04/30/2023 9:12:07 AM Referred By: REFERRED SELF Confirmed By:Eduardo Freitas
[2023-04-30] MEDS: PANTOprazole 40 MG in SYRINGE 0 ML IV SCH (12:30)
[2023-04-30] MEDS ORDERED: oxyCODONE HCL IR 5 MG TAB (IMMEDIATE RELEASE) PO PRN (13:12)
[2023-05-01] MEDS: PIPERACILLIN/TAZOBACTAM 4.5 GM in DEXTROSE 5% MINI-B 100 ML IV SCH ×3 (00:05→17:08)
[2023-05-01] MEDS: NSS + 20MEQ KCL 20 MEQ/1,000 ML BAG IV SCH ×2 (05:04→15:04)
--- NOTE | 2023-05-01 05:18 | Surgery Progress Note ---
Date of Service May 01, 2023 Assessment & Plan (1) Abscess of sigmoid colon due to diverticulitis: Plan: The patient has been admitted on the hospitalist service. From a surgical perspective we recommend proceeding as follows: Continue analgesics as needed Continue antiemetics as needed Diet has advanced to clear liquids which she has tolerated. Will continue this for the present time until he has further improvement of bowel function Provide IV fluid for hydration until oral intake deemed adequate Maintain the patient on antibioticshe is currently receiving Zosyn. Patient will likely require at least a 10 to 14-day course of antibiotics with plans to transition to oral antibiotics at time of discharge Check a.m. labs when available Mobilize as able Patient continues to improve. Minimal discomfort. Will advance his diet to fu ll liquids. Hopeful discharge tomorrow Admission and Anticipated Discharge Date Admission Date: April 29, 2023 Subjective Patient is currently resting comfortably in bed. He has not had a bowel movement since admission but began passing flatus. He denies any worsening abdominal pain with initiation of clear liquid which she has thus far tolerated. He does note that overall his abdominal pain has improved since admission. He denies any fevers, shakes, or chills. Physical Exam Gastrointestinal (Abdomen): Abdomen is noted to have minimal distention. There is no rebound tenderness or guarding. Patient does have some tenderness in the lower abdomen as noted previously. Results & Data Vital Signs (Past 12 Hours) Vital Signs Temp Pulse Resp BP Pulse Ox O2 Del Method 04/30/23 20:49 Room Air 04/30/23 19:28 36.7 C 79 18 129/83 96 Room Air PG Care Time/CCT Total # of Minutes Spent Total Time Spent with Patient: Total time spent is greater than 50% in coordination of care (as documented) at patient's floor/unit and/or counseling patient: Coding Level of Care Code 01132 SUB INP/OBS CARE 05/25MIN Diagnoses Abscess of sigmoid colon due to diverticulitis K57.20
[2023-05-01 06:35] LABS: Basophils # (auto) 0.02 K/uL (0.00-0.20); Basophils % (auto) 0.4 %; Eosinophils # (auto) 0.21 K/uL (0.00-0.50); Eosinophils % (auto) 4.2 %; Hematocrit (blood only) 41.9 % (42.0-52.0); Hemoglobin 14.2 g/dl (14.0-18.0); Immature Granulocytes # (auto) 0.01 K/uL (0.01-0.20); Immature Granulocytes % (auto) 0.2 %; Lymphocytes # (auto) 0.92 K/uL (1.20-3.40); Lymphocytes % (auto) 18.3 %; Mean Corpuscular Hemoglobin 30.6 pg (25.0-34.0); Mean Corpuscular Hgb Conc 33.9 g/dL (32.0-36.0); Mean Corpuscular Volume 90.3 fL (80.0-100.0); Mean Platelet Volume 9.3 fL (9.4-12.4); Monocytes # (auto) 0.58 K/uL (0.11-0.59); Monocytes % (auto) 11.5 %; Neutrophils % (auto) 65.4 %; Platelet Count 259 K/uL (130-400); RDW Coefficient of Variation 12.1 % (11.5-14.5); RDW Standard Deviation 39.8 fL (36.4-46.3); Red Blood Count 4.64 M/uL (4.70-6.10); White Blood Count 5.04 K/ul (4.8-10.8)
[2023-05-01 07:01] LABS: Albumin Globulin Ratio 1.1 (0.9-2); Albumin Level 3.4 gm/dl (3.4-5.0); BUN Creatinine Ratio 8.4 (10-20); Bilirubin,Total 1.3 mg/dl (0.2-1.0); Calcium 8.6 mg/dl (8.6-10.3); Creatinine Clr Calc Pharmacy 92.3 ml/min; Est GFR (African American) 110.8 ml/min; Est GFR (Non-African American) 95.6 ml/min; Potassium 4.1 mmol/L (3.5-5.1); Total Protein 6.4 gm/dl (6.0-8.3)
--- NOTE | 2023-05-01 09:12 | Hospitalist Progress Note ---
Date of Service May 01, 2023 Assessment & Plan (1) Abscess of sigmoid colon due to diverticulitis: Plan: Pain is generally controlled. Advance to full liquid diet this afternoon. Patient is tolerating well Advance diet per surgery Continue with Zosyn IV antibiotic coverage. Consider transitioning to oral antibiotics per surgery on discharge Possible discharge home tomorrow based on patient's progress (2) Abdominal pain: Plan: Pain is currently controlled. Patient with bowel movement today Patient has IV morphine and Tylenol ordered. But has not needed Oxy IR 5 mg every 6 hours as needed for pain 0-5 and continue with the IV morphine for pain 6-10 Continue Tylenol as needed Encouraged patient to ambulate (3) Nicotine dependence, chewing tobacco, uncomplicated: Plan: No history of cigarette smoking. Patient does chew tobacco Discussed that tobacco use can irritate digestive tract Patient advised to not use nicotine while inpatient. Nicotine patch offered and deferred Discussed risk of head and neck cancer as well as digestive tract complications from tobacco juice Patient encouraged to work on complete abstention from all tobacco products No evidence of tobacco use today on examination Plan Patient tolerated full liquid diet today. Positive for bowel movement today. Anticipate discharge home with no significant discharge needs possibly tomorrow Admission and Anticipated Discharge Date Admission Date: April 29, 2023 Supervising Physician Co-Signing Physician Notes PA Supervision Note: I did not personally see or examine the patient today, but I verified all huggins points of CRUZ Dubon's assessment and plan with the following exceptions/additions: None Subjective Attending: Dr. Wilson This is a 62-year-old male that was admitted yesterday for abscess of sigmoid colon due to diverticulitis. Patient was started on saline solution as well as Zosyn. Tolerating clear liquid diet yesterday. Patient is doing well today. No significant abdominal pain. Patient reports a large bowel movement this morning. Continues to pass flatus. Denies fever, chills, sweats, rigors. No shortness of breath. No significant cough. No other acute complaints. Review of Systems 2 Review of Systems: A total of 10 systems was reviewed and is negative other than as listed in the HPI Physical Exam 2 Physical Exam: GENERAL : No acute distress. Pleasant EYES: No icterus, gaze conjugate NOSE: No evidence of epistaxis MOUTH: No lesions or candidiasis. Tongue is midline NECK: Supple LUNGS: CTA B/L, no wheezes, rales or rhonchi HEART: Regular, rate controlled ABDOMEN: Soft, NT, ND, BS Present. Positive for rebound tenderness EXTREMITIES: No LE edema, pedal pulses intact NEURO: A&OX3 Results & Data Results & Data Vital Signs (Past 12 Hours) Vital Signs Temp Pulse Resp BP Pulse Ox O2 Del Method 05/01/23 08:01 36.3 C L 73 16 131/73 95 Room Air Laboratory Results Abnormal lab results 05/01/23 Range/Units 05:49 RBC 4.64 L (4.70-6.10) M/uL Hct 41.9 L (42.0-52.0) % MPV 9.3 L (9.4-12.4) fL Lymph # (Auto) 0.92 L (1.20-3.40) K/uL BUN/Creatinine Ratio 8.4 L (10-20) Total Bilirubin 1.3 H (0.2-1.0) mg/dl 05/01/23 05:49 05/01/23 05:49 PG Care Time/CCT Total # of Minutes Spent Total Time Spent with Patient: Total time spent is greater than 50% in coordination of care (as documented) at patient's floor/unit and/or counseling patient: 30 minutes Coding Level of Care Code 75533 SUB INP/OBS CARE 05/25MIN Diagnoses Abscess of sigmoid colon due to diverticulitis K57.20 Abdominal pain R10.9 Abdominal location: unspecified location Nicotine dependence, chewing tobacco, uncomplicated F17.220 Time Spent (min) 30 (2) Abdominal pain Abdominal location: unspecified location Qualified Code(s): R10.9 - Unspecified abdominal pain
[2023-05-01] MEDS: PANTOprazole 40 MG in SYRINGE 0 ML IV SCH (11:22)
[2023-05-02] MEDS: NSS + 20MEQ KCL 20 MEQ/1,000 ML BAG IV SCH ×2 (00:44→10:19)
[2023-05-02] MEDS: PIPERACILLIN/TAZOBACTAM 4.5 GM in DEXTROSE 5% MINI-B 100 ML IV SCH ×2 (00:44→08:49)
[2023-05-02 06:47] LABS: Basophils # (auto) 0.03 K/uL (0.00-0.20); Basophils % (auto) 0.8 %; Eosinophils # (auto) 0.23 K/uL (0.00-0.50); Eosinophils % (auto) 5.8 %; Hemoglobin 14.3 g/dl (14.0-18.0); Immature Granulocytes # (auto) 0.01 K/uL (0.01-0.20); Immature Granulocytes % (auto) 0.3 %; Lymphocytes # (auto) 1.06 K/uL (1.20-3.40); Lymphocytes % (auto) 26.5 %; Mean Corpuscular Hemoglobin 30.6 pg (25.0-34.0); Mean Corpuscular Volume 89.9 fL (80.0-100.0); Mean Platelet Volume 9.5 fL (9.4-12.4); Monocytes # (auto) 0.58 K/uL (0.11-0.59); Monocytes % (auto) 14.5 %; Neutrophils # (auto) 2.09 K/uL (1.40-6.50); Neutrophils % (auto) 52.1 %; Platelet Count 273 K/uL (130-400); RDW Standard Deviation 39.6 fL (36.4-46.3); Red Blood Count 4.67 M/uL (4.70-6.10)
[2023-05-02 07:17] LABS: Albumin Globulin Ratio 1.1 (0.9-2); Albumin Level 3.4 gm/dl (3.4-5.0); BUN Creatinine Ratio 6.5 (10-20); Bilirubin,Total 0.9 mg/dl (0.2-1.0); Calcium 8.7 mg/dl (8.6-10.3); Creatinine Clr Calc Pharmacy 83.2 ml/min; Est GFR (African American) 104.4 ml/min; Est GFR (Non-African American) 90.1 ml/min; Globulin 3.1 gm/dl (2.5-4.0); Magnesium 2.1 mg/dl (1.7-2.4); Potassium 4.2 mmol/L (3.5-5.1); Total Protein 6.5 gm/dl (6.0-8.3)
--- NOTE | 2023-05-02 10:17 | Surgery Progress Note ---
Date of Service May 02, 2023 Assessment & Plan (1) Abscess of sigmoid colon due to diverticulitis: Plan Doing better. Can advance diet. Recommend discharge today. I would like to see him in the office in 3 to 4 weeks Admission and Anticipated Discharge Date Admission Date: April 29, 2023 Subjective Patient seen. He is feeling well and would like to go home. Essentially no pain currently. He is tolerating diet and had a bowel movement this morning Physical Exam Constitutional: WD/WN, vitals as above no acute distress and not ill appearing Eyes: PERRL, conjunctivae normal, anicteric sclerae EOM intact bilaterally ENMT: external ear and nose normal, oropharynx normal Ears: no hearing impairment Neck: trachea midline, no thyromegaly Respiratory: normal respiratory effort; no respiratory distress and does not use accessory muscles Cardiovascular: Rate/Rhythm: regular rate and regular rhythm Gastrointestinal (Abdomen): Soft. Nontender nondistended. Improved from his admission Skin: no rashes, warm and dry Psychiatric: Orientation: alert, oriented x 3 and cooperative Results & Data Vital Signs (Past 12 Hours) Vital Signs Temp Pulse Resp BP Pulse Ox O2 Del Method 05/02/23 07:21 36.4 C L 66 16 135/79 95 Room Air PG Care Time/CCT Total # of Minutes Spent Total Time Spent with Patient: Total time spent is greater than 50% in coordination of care (as documented) at patient's floor/unit and/or counseling patient: Coding Level of Care Code 96691 SUB INP/OBS CARE 05/25MIN Diagnoses Abscess of sigmoid colon due to diverticulitis K57.20
[2023-05-02] MEDS: PANTOprazole 40 MG in SYRINGE 0 ML IV SCH (12:32)
--- NOTE | 2023-05-02 13:52 | Discharge Summary ---
Discharge Summary Date of Service May 02, 2023 Notes For Next Care Provider Needs colonoscopy in 6-8 weeks Medication Changes From Visit Cipro 500mg po bid x 6 days Flagyl 500mg po tid x 6 days Admission HPI Per Admitting Provider The patient is a 62-year-old male with no significant past medical history, who presents to the emergency department as noted above. CT scan of abdomen pelvis shows acute sigmoid diverticulitis with intramural abscess 2 cm in size, a mildly dilated appendix without signs of appendicitis, and BPH with chronic bladder outlet obstruction. From the ED the patient received normal saline 1 L bolus, Zosyn 4.5 g IV, morphine sulfate 6 mg IV, and Zofran 4 mg IV. He was assessed by general surgery Dr. Whitehead, and will be admitted to the hospitalist medical service Principal Dx & Hospital Course #1 = Principal Diagnosis (1) Abscess of sigmoid colon due to diverticulitis: Acute sigmoid diverticulitis with 2 cm intramural abscess was managed conservatively with IVFs, IV Zosyn, bowel rest, pain medicine. he had great improvement and diet was slowly advanced to low fiber. Remain on low fiber diet x 2 weeks then gradually transition to high fiber diet for diverticulitis prevention FInish out 10 day course of Cipro and Flagyl -needs 6 more days after discharge f/u with Surgeryin 3-4 weeks needs colonoscopy in 6-8 weeks (2) Nicotine dependence, chewing tobacco, uncomplicated: Patient does chew tobacco Patient encouraged to work on complete abstention from all tobacco products Plan Dispo-dc to home Discharge Exam Constitutional WD/WN, vitals as above Respiratory normal respiratory effort, lungs clear to auscultation Cardiovascular RRR, no murmur, no edema Gastrointestinal (Abdomen) normal bowel sounds, soft, nontender, no hepatosplenomegaly Psychiatric A+Ox3, euthymic affect Updated Medication List Medication Instructions Recorded Confirmed Type ibuprofen 200 mg tablet (Advil) 200 mg PO Q6H PRN Pain 04/29/23 04/29/23 History ciprofloxacin HCl 500 mg tablet 500 mg PO BID #12 tabs 05/02/23 Rx metronidazole 500 mg tablet 500 mg PO TID #18 tabs 05/02/23 Rx Hospital Stay Data Consultations 04/29/23 12:23 Consult General Surgery Stat 04/29/23 12:41 ED Decision to Admit Stat Diagnostic Imagining Performed 04/29/23 09:34 CT abd pelvis IV con only Stat Pending Results Patient Have Any Pending Studies at Discharge: No Discharge Instructions Given to Patient (Per Discharging Provider) Please finish out 6 more days of the antibiotics for your bowel infection. You will need to follow up with the Surgeon in 3-4 weeks and have a colonoscopy in 6-8 weeks to ensure there is not an underlying problem in your colon like a cancer. Total Time Total Time Spent Total Time Spent (In Minutes): 35 min Coding Level of Care Code 80353 INP/OBS DISCH >30 MIN Diagnoses Abscess of sigmoid colon due to diverticulitis K57.20 Nicotine dependence, chewing tobacco, uncomplicated F17.220
== END 2023-05-02 14:46 | disposition home or self-care (01) | DRG 392 ==
LOC: ED 09:18 → SUATTDRO 13:02 → EDINP 13:02 → 3E 14:11